=== PATIENT | male | born 1975 | race American Indian/Alaskan Native ===

== ENCOUNTER 2021-07-16 14:58 | Emergency (ER) | payer OTHER ==
[2021-07-16] MEDS ORDERED: dexAMETHasone 4 MG/ML VIAL IM ONE (17:06)
[2021-07-16] MEDS ORDERED: KETOROLAC 60 MG/2 ML INJ IM ONE (17:07)
[2021-07-16] MEDS ORDERED: CYCLOBENZAPRINE 10 MG TAB PO ONE (17:07)
--- NOTE | 2021-07-16 17:59 | Emergency Department Report ---
ED Back Pain/Injury HPI - General Chief Complaint: Back Pain/Injury Stated Complaint: L SIDE PAIN Time Seen by Provider: 07/16/21 16:40 Source: patient, EMS Limitations: No Limitations - History of Present Illness Initial Comments: 45-year-old black male presents to the emergency department for evaluation of left lower back pain that radiates down his left leg. He states that he was in the shower this morning and he bent over and had sudden onset of left lower back pain that went all the way down to his leg and he states pain feels like a hot burning sensation. He states pain is 9 out of 10 and worse when he bends. He denies injury, trauma, urinary symptoms, and saddle anesthesia. MD Complaint: back pain -: Sudden, hour(s) Similar Symptoms Previously: No Place: home Radiation: left leg Severity: severe Severity scale (0 -10): 9 Quality: burning, aching Consistency: constant Worsens With: sitting upright, other (Pending) Associated Symptoms: denies: weakness, numbness, difficulty walking, difficulty urinating, incontinence, fever/chills, abdominal pain, loss of appetite, malaise, nausea/vomiting, seizure, shortness of breath, syncope - Related Data Previous Rx's Medication Instructions Recorded Last Taken Type Cyclobenzaprine [Flexeril] 10 mg PO TID PRN #21 tab 07/16/21 Unknown Rx Lidocaine [Lidoderm] 1 each TP DAILY #10 patch 07/16/21 Unknown Rx Naproxen [Naprosyn] 500 mg PO BID #14 tab 07/16/21 Unknown Rx methylPREDNISolone [Medrol 4MG 4 mg PO DAILY #1 pack 07/16/21 Unknown Rx DOSEPAK (21 tabs)] Allergies Allergy/AdvReac Type Severity Reaction Status Date / Time No Known Allergies Allergy Verified 07/16/21 15:00 ED Review of Systems ROS: Stated complaint: L SIDE PAIN Other details as noted in HPI Comment: All other systems reviewed and negative Constitutional: denies: chills, fever Respiratory: denies: shortness of breath, SOB with exertion, SOB at rest Cardiovascular: denies: chest pain, palpitations Gastrointestinal: denies: abdominal pain, nausea, vomiting Genitourinary: denies: urgency, dysuria, frequency, hematuria, discharge, testicular pain, testicular mass Musculoskeletal: back pain Neurological: denies: headache, paresthesias, abnormal gait ED Past Medical Hx - Medications Home Medications: Home Medications Medication Instructions Recorded Confirmed Last Taken Type Cyclobenzaprine [Flexeril] 10 mg PO TID PRN #21 tab 07/16/21 Unknown Rx Lidocaine [Lidoderm] 1 each TP DAILY #10 patch 07/16/21 Unknown Rx Naproxen [Naprosyn] 500 mg PO BID #14 tab 07/16/21 Unknown Rx methylPREDNISolone [Medrol 4MG 4 mg PO DAILY #1 pack 07/16/21 Unknown Rx DOSEPAK (21 tabs)] ED Physical Exam - General Limitations: No Limitations General appearance: alert, in no apparent distress - Head Head exam: Present: atraumatic, normocephalic - Eye Eye exam: Present: normal appearance. Absent: conjunctival injection - Neck Neck exam: Present: normal inspection. Absent: tenderness, lymphadenopathy - Respiratory Respiratory exam: Present: normal lung sounds bilaterally. Absent: respiratory distress, wheezes, rales, rhonchi, chest wall tenderness - Cardiovascular Cardiovascular Exam: Present: regular rate, normal heart sounds - GI/Abdominal GI/Abdominal exam: Present: soft, normal bowel sounds. Absent: distended, tenderness - Extremities Exam Extremities exam: Present: normal inspection, normal capillary refill. Absent: pedal edema, joint swelling, calf tenderness - Back Exam Back exam: Present: normal inspection, tenderness. Absent: CVA tenderness (R), CVA tenderness (L), paraspinal tenderness, vertebral tenderness - Expanded Back Exam Expanded Back exam: Absent: saddle anesthesia 1 - Area tender to palpation, and when palpated since shooting pain down the back of entire left leg. - Neurological Exam Neurological exam: Present: alert, oriented X3, normal gait. Absent: motor sensory deficit - Psychiatric Psychiatric exam: Present: normal affect, normal mood - Skin Skin exam: Present: warm, dry, normal color ED Course Vital Signs 07/16/21 14:59 Temperature 98.4 F Pulse Rate 66 Respiratory 16 Rate Blood Pressure 115/80 [Left] O2 Sat by Pulse 98 Oximetry - Reevaluation(s) Reevaluation #1: 07/16/21 18:56 Pain improved after medications. Patient able to ambulate without pain at this time. ED Medical Decision Making - Medical Decision Making 45-year-old black male presents to the emergency department for evaluation of left lower back pain that radiates down his left leg. He states that he was in the shower this morning and he bent over and had sudden onset of left lower back pain that went all the way down to his leg and he states pain feels like a hot burning sensation. He states pain is 9 out of 10 and worse when he bends. He denies injury, trauma, urinary symptoms, and saddle anesthesia. Assessment consistent with left lower back pain with lumbar radiculopathy to left lower extremity. No vertebral tenderness noted on assessment. Pain was improved by medication. Patient will be discharged home with Medrol Dosepak, Flexeril, naproxen, and lidocaine patch. He is advised to take medication as prescribed and follow-up with primary care provider or orthopedics if worsening symptoms. He verbalized understanding of and agreement with plan of care. Critical care attestation.: If time is entered above; I have spent that time in minutes in the direct care of this critically ill patient, excluding procedure time. ED Disposition Clinical Impression: Back pain Qualifiers: Back pain location: low back pain Chronicity: acute Back pain laterality: left Sciatica presence: with sciatica Sciatica laterality: sciatica of left side Qualified Code(s): M54.42 - Lumbago with sciatica, left side Disposition: 01 HOME / SELF CARE / HOMELESS Is pt being admited?: No Does the pt Need Aspirin: No Condition: Stable Instructions: Radicular Pain, Acute Back Pain, Adult, Back Injury Prevention, [id number], Sciatica, [id number] Additional Instructions: Take medications as prescribed. Follow-up with primary care provider or orthopedics if no improvement or worsening symptoms. Prescriptions: Cyclobenzaprine [Flexeril] 10 mg PO TID PRN #21 tab PRN Reason: Muscle Spasm Lidocaine [Lidoderm] 1 each TP DAILY #10 patch methylPREDNISolone [Medrol 4MG DOSEPAK (21 tabs)] 4 mg PO DAILY #1 pack Naproxen [Naprosyn] 500 mg PO BID #14 tab Referrals: MENDY PALOMARES MD [Referring] - 3-5 Days SANDRA MENENDEZ MD [Staff Physician] - 3-5 Days Forms: Work/School Release Form(ED), Work/School Release Form Time of Disposition: 18:09
[2021-07-16 18:52] VITALS: BP 128/78
== END 2021-07-16 18:52 | disposition home or self-care (01) ==
LOC: ED 14:58
DX: M54.50 Low back pain, unspecified (principal)
CPT/HCPCS: 96372; 99283; J1100; J1885